=== PATIENT | female | born 1975 | race Caucasian/White ===

== ENCOUNTER 2018-06-01 05:28 | Day surgery (SDC) | payer OTHER ==
[2018-06-01] MEDS ORDERED: LR 1,000 ML IV ONE (05:59)
[2018-06-01] MEDS ORDERED: BUPIVACAINE 0.5% 30 ML SDV ONE (06:19)
[2018-06-01] MEDS ORDERED: LIDOCAINE 1% 300 MG/30 ML SDV ONE (06:19)
[2018-06-01] MEDS ORDERED: EPINEPHrine 30 MG/30 ML MDV (0.1 MG/0.1 ML) ONE (06:20)
[2018-06-01] MEDS ORDERED: ceFAZolin 2 GM/DEXTROSE 100 ML IV ONE (06:41)
--- NOTE | 2018-06-01 06:44 | PDHPUP ---
History & Physical Update H&P update statement: This history and physical update is based on an assessment of the patient which was completed after admission or registration (within 24 hours), but prior to the surgery/procedure. H&P update: H&P reviewed & patient examined, no change in patient's condition since H&P completed
--- NOTE | 2018-06-01 06:44 | SOAPPROG ---
SOAP Progress Note Assessment/Plan: HISTORY AND PHYSICAL Name SRIKANTH CHAN (42yo, F) ID# [id number] Appt. Date/Time 05/09/2018 01: 30PM 1975 Service Dept. MAIN OFFICE Provider JAKOB ARANA Insurance Med Primary: GENIE Insurance # : [id number] Policy/Group # : [id number] Prescription: DSTPS - Member is eligible. details Left shoulder MRI, continued aching in the shoulder Patient's Care Team Primary Care Provider: TOBY MARISCAL MD: [address], [place] [address], , Patient's Pharmacies [facility] #[id number] (ER[facility]): [address], [facility] [id number], Ph , Vitals None recorded. Allergies Allergies not reviewed (last reviewed 03/31/2018) ANIMAL DANDER BEEF CONTAINING PRODUCTS COCONUT CODEINE: Vomiting - constant disorientation CORN: - in large doses DOG DANDER GARLIC GLUTEN: - AND gluten based distilled grains HOUSE DUST LIDOCAINE MARCAINE MOLD NOVOCAIN: - painful injection sight for extended periods of time: large doses= lethal PENICILLINS: Hives (Moderate to severe) - extreme panic attacks PHENOL POTATO: - in large doses RAW VEGETABLE SHRIMP SOY SULFA (SULFONAMIDE ANTIBIOTICS): Vomiting TREE AND SHRUB POLLEN Generic medications, all fruit except berries. Most nuts Medications not reviewed (last reviewed 03/31/2018) albuterol sulfate HFA 90 mcg/actuation aerosol inhaler Inhale 2 puff(s) every 4 hours by inhalation route. Note: as needed 05/06/15 entered Jenezza Branden betamethasone acetate and sodium phos 6 mg/mL suspension for injection Take 1 mL by injection route. 12/07/17 administered Juan Novoa M.D. Claritin 05/06/15 entered Jenezza Otero DEPO-Medrol 40 mg/mL suspension for injection Take 1 mL by injection route. 11/28/17 administered Juan Novoa M.D. Ritalin 20 mg tablet 04/14/18 filled [employer] None recorded. Problems Reviewed Problems * Osteoarthrosis of the carpometacarpal joint of the thumb - Onset: 12/07/2017 * Pain in elbow - Onset: 11/23/2017, Left * Subacromial impingement - Onset: 12/07/2017, Left * Lateral epicondylitis - Onset: 11/23/2017, Left * Sprain of shoulder * Injury of shoulder region, Left - tubing injury * Pain of left shoulder joint - Onset: 11/23/2017 Family History Family History not reviewed (last reviewed 03/31/2018) Maternal Grandmother - Problem - Cancer Paternal Grandfather - Problem - Cancer - Problem - Bleeding Tendency Maternal Grandfather - Problem - Bleeding Tendency Mother - Arthritis Father - Arthritis Social History not reviewed (last reviewed 03/31/2018) Smoking Status: Current every day smoker Smoker (08/11 PPD) Occupation: Healer Employer: Self Chewing tobacco: none Alcohol intake: Occasional Caffeine intake: Moderate Illicit drugs: no Exercise level: Occasional Hand Dominance: Left Education: Post Graduate Live alone or with others?: with others (Notes: ) Surgical History Surgical History not reviewed (last reviewed 03/31/2018) * Orthopaedic Surgery - 2008 - hand surgery [facility] [place] * Other - 2004 - 2002. C- section * Other - 1995 - laparoscopy endomenthosis RESIDENT IN DIAGNOSTIC RADIOLOGY History (not configured) Obstetric History None recorded. Past Pregnancies None recorded. Past Medical History Past Medical History not reviewed (last reviewed 03/31/2018) Asthma: Y Cancer: Y - skin Migraines: Y Screening None recorded. HPI This is a very pleasant 42 year old LHD female with: - 02/19 -- left shoulder hyperabduction injury while rafting -04/01/15 -- left shoulder SAS injection by Shilo Dc PA-C with mild recurrence of symptoms -- currently s/s c/w PIEDAD vs partial RCT - insidious onset of right basilar thumb pain -- current s/s c/w early right thumb CMCJ arthritis - insidious onset of left lateral elbow pain - 11/24/17 -- left elbow MRI -- partial tear common extensor tendon at origin from the lateral epicondyle - 11/28/17 -- Left lateral epicondyle injection with great symptomatic relief -01/2018 -- increased left shoulder pain -- s/s c/w left shoulder PIEDAD vs partial RCT She presents today to discuss her treatment options for her left shoulder. She notes that she fell on her shoulder recently. She is able to do range of motion of her shoulder without difficulty. Of note, she has sleep apnea, hypersomnia and a circadian rhythm disorder. ROS ROS as noted in the HPI Physical Exam Patient is a 42-year-old female. Bilateral elbow examination Inspection/palpation: Right: Normal resting posture. Left: TTP overlying the lateral epicondyle Elbow ROM Elbow Extension-Flexion: -10 -150 / -10 -150 / 0-150 Forearm Supination: 0-80 / 0-80 / 0-80 Pronation: 0-80 / 0-80 / 0-80 Elbow strength Elbow Flexors: 5 / 5 / 5 Triceps: 5 / 5 / 5 Sensory MABC: + / + / + LABC: + / + / + Special tests Stability tests Lateral pivot shift: - / - / - Push-up: - / - / - Moving valgus stress: - / - / - Epicondylitis tests Resisted wrist extension: - / + / - Resisted wrist flexion: - / - / - Bilateral thumb examination Inspection/palpation: Right: TTP overlying the CMCJ Left: Soft, no tenderness to palpation. Thumb ROM CMC Radial abduction: 80 / 80 / 80 Palmar abduction: 80 / 80 / 80 MCP: 0-60 / 0-60 / 0-60 IP: 0-50 / 0-50 / 0-50 Thumb motors FPL: 5 / 5 / 5 EPL: 5 / 5 / 5 Thumb sensory RDN: + / + / + UDN: + / + / + Thumb tests MCP RCL: - / - / - UCL: - / - / - IP RCL: - / - / - UCL: - / - / - Other thumb tests Triggering: - / - / - Dupuytrens cords: - / - / - STT grind: - / - / - CMC grind: + / - / - Bilateral shoulder examination Inspection/palpation: Right: Normal resting posture. Left: TTP overlying the SAS and the bicipital groove Shoulder ROM (R / L / Normal) Forward flexion: 170 / 150 / 170 Abduction: 160 / 150 / 160 Extension: 40 / 40 / 40 Shoulder strength (R / L / Normal) Deltoid: 5/ 5 / 5 Biceps: 5/ 5 / 5 Shoulder sensory (R / L / Normal) Axillary: + / + / + Shoulder tests Stability tests OBriens: - / + / - Apprehension: - / - / - Relocation: - / - / - Jerk: - / - / - Rotator cuff tests Empty can: - / + / - Belly press: - / - / - Lift off : - / - / - Impingement tests Goran: - / + / - Neer: - / + / - Cross-arm adduction: - / + / - Biceps test Speeds: - / + / - Yergason supination: - / - / - Assessment / Plan This is a very pleasant 42 year old LHD female with: - 02/19 -- left shoulder hyperabduction injury while rafting -04/01/15 -- left shoulder SAS injection by Shilo Dc PA-C with mild recurrence of symptoms -- currently s/s c/w PIEDAD vs partial RCT - insidious onset of right basilar thumb pain -- current s/s c/w early right thumb CMCJ arthritis - insidious onset of left lateral elbow pain - 11/24/17 -- left elbow MRI -- partial tear common extensor tendon at origin from the lateral epicondyle - 11/28/17 -- Left lateral epicondyle injection with great symptomatic relief -01/2018 -- increased left shoulder pain -- s/s c/w left shoulder PIEDAD vs partial RCT -03/28/18 -- Left shoulder MRI -- distal supraspinatus tendinosis, degenerative arthropathy of AC joint For left elbow: - I have discussed with the patient the risks, benefits, alternatives and complications associated with both non-operative (specifically, NSAIDs, counter- force bracing, PT, injection) and operative (specifically, left lateral epicondylar debridement with repair of the common extensor origin) forms of treatment - The patient fully understands the risks, benefits, alternatives, and complications associated with these forms of treatment but is not sure how she would like to proceed at present - She will consider her options and follow-up in the future if/when she wishes to pursue additional treatment For left shoulder: - I have discussed with the patient the risks, benefits, alternatives and complications associated with non-operative (specifically, observation, injection, MRI) and operative (specifically, left shoulder arthroscopy with SAD , DCE, labral debridement, LHB tenotomy, and rotator cuff debridement and/or repair) forms of treatment - The patient fully understands the risks, benefits, alternatives, and complications associated with these forms of treatment and would like to proceed with surgery. - She has signed the informed consent form for surgery and surgery will be scheduled for the near future. For right thumb: - I have discussed with the patient the risks, benefits, alternatives and complications associated with non-operative (specifically, observation, NSAIDs, splinting) forms of treatment. - The patient fully understands the risks, benefits, alternatives, and complications associated with these forms of treatment and wishes to continue with observation at present -FU as above 1. Pain of left shoulder joint M25.512: Pain in left shoulder 2. Lateral epicondylitis - Left M77.12: Lateral epicondylitis, left elbow 3. Osteoarthrosis of the carpometacarpal joint of the thumb M18.11: Unilateral primary osteoarthritis of first carpometacarpal joint, right hand 4. Subacromial impingement - Left M75.42: Impingement syndrome of left shoulder 5. Tendinosis M67.814: Other specified disorders of tendon, left shoulder Return to Office None recorded. Encounter Sign-Off Encounter signed-off by JAKOB ARANA, 05/09/2018. 06/01/18 06:43 Objective: Vital Signs Temp Pulse Resp BP Pulse Ox 36.4 C 80 15 104/60 95 06/01/18 06:18 06/01/18 06:18 06/01/18 06:18 06/01/18 06:18 06/01/18 06:18 ICD10 Worksheet Patient Problems: Problems Problem Status Onset Abdominal pain Acute Constipation Acute Endometriosis Acute Pelvic abscess Acute Pelvic pain Acute Small bowel obstruction Acute
[2018-06-01] MEDS ORDERED: CLINDAMYCIN 600 MG/DEXTROSE/50 ML BAG IV ONE (07:04)
[2018-06-01] MEDS ORDERED: MIDAZOLAM 2 MG/2 ML VIAL ONE (07:06)
[2018-06-01] MEDS ORDERED: DEXAMETHASONE 4 MG/ML VIAL ONE (07:11)
[2018-06-01] MEDS ORDERED: fentaNYL 100 MCG/2 ML INJ ONE ×2 (07:11→09:07)
[2018-06-01] MEDS ORDERED: PROPOFOL 200 MG/20 ML VIAL ONE (07:11)
[2018-06-01] MEDS ORDERED: ONDANSETRON 4 MG/2 ML VIAL ONE (07:11)
[2018-06-01] MEDS ORDERED: KETOROLAC 30 MG/1 ML SDV ONE (07:11)
[2018-06-01] MEDS ORDERED: LIDOCAINE 2% 100 MG/5 ML SYR ONE (07:12)
[2018-06-01] MEDS ORDERED: LIDO/EPI 1% **for epidural** 30 ML SDV ONE (07:35)
[2018-06-01] MEDS ORDERED: CLINDAMYCIN 600 MG/DEXTROSE 50 ML IV SCH ×2 (08:30→14:00)
[2018-06-01] MEDS ORDERED: ALBUTEROL 3 ML DEYVIAL IH PRN ×2 (08:35→09:09)
[2018-06-01] MEDS ORDERED: fentaNYL 100 MCG/2 ML INJ IVP PRN ×2 (08:35→09:09)
[2018-06-01] MEDS ORDERED: ONDANSETRON 4 MG/2 ML VIAL IVP PRN ×2 (08:35→09:09)
[2018-06-01] MEDS ORDERED: NALOXONE HCL 0.4 MG/ML INJ IVP PRN ×2 (08:35→09:09)
[2018-06-01] MEDS ORDERED: MIDAZOLAM 2 MG/2 ML VIAL IVP ONE (08:45)
[2018-06-01] MEDS ORDERED: MEPERIDINE 25 MG/0.5 ML AMP IVP PRN (09:09)
--- NOTE | 2018-06-01 09:09 | PDANEPAE ---
ANE Past Medical History - Cardiovascular History Hx Hypertension: No Hx Arrhythmias: No Hx Chest Pain: No Hx Coronary Artery / Peripheral Vascular Disease: No Hx CHF / Valvular Disease: No Hx Palpitations: No - Pulmonary History Hx COPD: No Hx Asthma/Reactive Airway Disease: Yes Hx Recent Upper Respiratory Infection: No Hx Oxygen in Use at Home: No Hx Sleep Apnea: Yes Sleep Apnea Screening Result - Last Documented: Positive Pulmonary History Comment: [place] DX 03/2018 WAITING TO GET MOUTH GUARD STARTING POINT. TO THEN REPEAT TEST. COLD AIR,PANIC,EXERCISE INDUCED - Neurologic History Hx Cerebrovascular Accident: No Hx Seizures: No Hx Dementia: No - Endocrine History Hx Diabetes: No - Renal History Hx Renal Disorders: No - Liver History Hx Hepatic Disorders: No - Neurological & Psychiatric Hx Hx Neurological and Psychiatric Disorders: Yes Neurological / Psychiatric History Comment: ADD. INTERMITTENT MIGRAINES. SOME OCULAR IF ON COMPUTER LONG TIME - Cancer History Hx Cancer: Yes Cancer History Comment: SKIN - Congenital Disorder History Hx Congenital Disorders: No - GI History Hx Gastrointestinal Disorders: Yes Gastrointestinal History Comment: HISTADELIA. GLUTEN AND SOY INTOLERANCE. HYPOGLYCEMIA. CELIAC - Other Health History Other Health History: LT SHLDR. INJURED ROTATOR CUFF. LIMITED RANGE OF MOTION - Chronic Pain History Chronic Pain: Yes (LT SHLDR,INTESTINES,LL QUADRANT) - Surgical History Prior Surgeries: DX LAP/ADHESION WITH VAGINAL CUFF REPAIR/ POST UTI/BACTERIAL INFECTION 07/2015. X 2. LAPARASCOPY. RT HAND ORIF WITH POST HARDWARE REMVL ANE Review of Systems Review of Systems: - Exercise capacity METS (RN): 4 METS ANE Patient History - Allergies Allergies/Adverse Reactions: amoxicillin Allergy (Verified 06/03/15 09:55) apple Allergy (Verified 07/08/15 18:13) bupivacaine HCl [From Marcaine] Allergy (Verified 06/03/15 09:56) codeine Allergy (Verified 06/03/15 09:54) gluten Allergy (Verified 06/03/15 09:57) latex Allergy (Verified 06/03/15 10:07) lidocaine Allergy (Verified 06/03/15 09:56) Penicillins Allergy (Verified 06/01/18 06:47) phenol Allergy (Verified 06/03/15 09:58) procaine HCl [From Novocain] Allergy (Verified 06/03/15 09:55) soy Allergy (Verified 06/03/15 09:57) Sulfa (Sulfonamide Antibiotics) Allergy (Verified 06/03/15 09:54) GENERIC FILLERS IN PAIN MEDS Allergy (Uncoded 06/03/15 09:59) GENERIC PAIN KILLERS Allergy (Uncoded 06/03/15 10:07) SOY Allergy (Uncoded 06/03/15 09:58) - Home Medications Home Medications: Albuterol [Proventil Inhaler HFA (*)] 1 - 2 puffs IH DAILY PRN 05/27/15 [Last Taken 05/30/18] Loratadine [Claritin 10 mg] 10 mg PO PRN 05/27/15 [Last Taken 05/27/18] Methylphenidate HCl [Ritalin 20mg (*)] 20 mg PO 07,0930,12,0230,06 PRN 05/27/15 [Last Taken 05/31/18] - Smoking Hx Smoking Status: Heavy smoker ANE Labs/Vital Signs - Vital Signs Blood Pressure: 104/60 Heart Rate: 80 Respiratory Rate: 15 O2 Sat (%): 95 Height: 165.1 cm Weight: 50.802 kg ANE Physical Exam - Airway Mallampati Score: Class 2 Mouth exam: normal dental/mouth exam - Pulmonary Pulmonary: no respiratory distress - Cardiovascular Cardiovascular: regular rate and rhythym - ASA Status ASA Status: III ANE Anesthesia Plan Anesthesia Plan: GA w LMA
--- NOTE | 2018-06-01 09:10 | POSTOPPROG ---
Post Op Note Date of Operation: 06/01/18 Surgeon: Juan Novoa Biology Tutor: Laura Roberson PA-C Anesthesiologist: Dr. St Anesthesia: GET(General Endotracheal) Pre-op Diagnosis: left shoulder impingement, AC joint arthritis, rotator cuff tear Post-op Diagnosis: same Indication: pain Procedure: left shoulder arthroscopic ASD, DCE, debridement Inf/Abcess present in the surg proc area at time of surgery?: No EBL: Minimal
[2018-06-01] MEDS ORDERED: traMADol 50 MG TAB PO ONE (10:45)
[2018-06-01 11:06] VITALS: BP 94/59
--- NOTE | 2018-06-02 06:17 | GOP ---
PATIENT: SRIKANTH CHAN DATE OF SERVICE: 06/01/18 PATIENT DATE OF : 1975 SURGEON: Juan Novoa M.D. BOARD CERTIFIED ARTS THERAPIST: Laura Roberson PA-C Mrs. Musa assistance was medically necessary for patient positioning and the retraction of vital structures. ANESTHESIA: General / local anesthesia by surgeon PRE-OPERATIVE DIAGNOSES: Left shoulder subacromial impingement (ICD-10 code M75.50 bursitis of shoulder) Left shoulder acromioclavicular joint arthritis (ICD-10 code M13.119 acromioclavicular joint arthritis) Left shoulder SLAP tear (ICD-10 code S43.439S Superior glenoid labrum lesion of shoulder) Left shoulder biceps tenosynovitis (ICD-10 code M75.20 bicipital tendinitis of shoulder) POST-OPERATIVE DIAGNOSES: Left shoulder subacromial impingement (ICD-10 code M75.50 bursitis of shoulder) Left shoulder acromioclavicular joint arthritis (ICD-10 code M13.119 acromioclavicular joint arthritis) Left shoulder SLAP tear (ICD-10 code S43.439S Superior glenoid labrum lesion of shoulder) Left shoulder biceps tenosynovitis (ICD-10 code M75.20 bicipital tendinitis of shoulder) OPERATIVE PROCEDURES: CPT code 74691 Left shoulder arthroscopic subacromial decompression CPT code 06277 -- Left shoulder arthroscopic debridement, extensive CPT code 84861 Left shoulder arthroscopic distal clavicle excision CPT code 67815 Left shoulder long head of biceps tenotomy EBL: 2cc COMPLICATIONS: None IMPLANTS: None BRIEF CLINICAL NOTE: This is a very pleasant 42 year old female with a significant history for left shoulder subacromial impingement, acromioclavicular joint arthritis, a SLAP tear, and long head of biceps tendinitis and partial tearing. As such, I have discussed the risks, benefits, alternatives, and complications associated with both non-operative (specifically , observation, activity modifications, NSAIDs, PT, injection) and operative ( specifically, left shoulder arthroscopy with subacromial decompression, distal clavicle excision, labral debridement, and possible long head of biceps tenotomy ) forms of treatment. The patient fully understands the risks, benefits, alternatives, and complications associated with both forms of treatment and wishes to proceed with operative intervention as outlined above. The patient has signed the informed consent form for surgery. OPERATIVE NOTE: On the day of surgery, all of the patients questions were answered. The patient was then transferred from the pre-operative area into the operating room and a formal, Time-Out procedure was performed. The patient was identified by name, medical record number, social security number, and date of . In addition, the patients left upper extremity was identified as the correct portion of the patients body for surgery with the patients left shoulder being identified as the correct portion of that extremity for surgery. The anesthesia team administered pre-operative antibiotics for prophylaxis. The patient was transferred to the operating room table and placed in the beach chair position while padding all bony prominences. The extremity was then prepped and draped in the normal sterile fashion. A sterile marking pen was then utilized to cristobal out standard posterior, lateral , and anterior arthroscopic portal incisions. An 18-gauge spinal needle was utilized to localize the glenohumeral joint and the joint was insufflated with 60cc of a 50:50 mixture of 1% lidocaine with 1:200,000 components of epinephrine and normal saline. A number 11-blade was utilized to make the posterior portal incision. The blunt obturator and arthroscopic cannula were then advanced through the posterior portal incision into the glenohumeral joint. The arthroscope was then inserted and the shoulder was brought into external rotation. An 18-gauge spinal needle was utilized to create the anterior portal with outside-in technique. A medium-sized Athrex corkscrew cannula was then inserted through the anterior portal incision. A diagnostic arthroscopy was performed in the glenohumeral space. The following structures were identified and examined with the following findings: Glenohumeral diagnostic arthroscopy Glenoid: minimal degenerative change Humeral head: intact Glenoid labrum Anterior labrum: tear from 10 oclock to 1 oclock Superior labrum: tear from 10 oclock to 1 oclock Posterior labrum: tear from 10 oclock to 1 oclock Inferior labrum: intact Biceps tendon: partial thickness tearing at insertion point Glenohumeral ligaments: SGHL: intact MGHL: intact AIGHL: intact PIGHL: intact Undersurface of rotator cuff: Subscapularis: intact Supraspinatus: intact Infraspinatus: intact The 4.0mm aggressive cutter was then inserted through the anterior portal and an extensive debridement was performed within the glenohumeral joint including the labrum and the long head of biceps tendon. The cautery wand was inserted through the anterior portal and the long head of the biceps tendon was released off of the supraglenoid tubercle (long head of biceps tenotomy). The arthroscope was then withdrawn from the glenohumeral joint and posterior cannula was re-directed into the subacromial space. The arthroscope was then re -inserted into the posterior cannula. An 18-gauge spinal needle was used to create a straight lateral portal with outside-in technique. A large Arthrex corkscrew cannula was then inserted through the lateral portal incision. The 4.0mm aggressive cutter and the cautery wand were utilized to excise the subacromial-subdeltoid bursa. At this point, a diagnostic arthroscopy was performed in the subacromial space. The following structures were identified and examined with the following findings: Subacromial space diagnostic arthroscopy Subacromial / subdeltoid bursa: hypertrophic and inflamed Acromion: undersurface spurring Coracoacromial ligament: intact Acromioclavicular joint: undersurface spurring and arthritis Bursal surface of rotator cuff muscles: Supraspinatus: intact Infraspinatus: intact The 4.0mm barrel garrison was then utilized to perform both an acromioplasty as well as an arthroscopic distal clavicle excision. Meticulous hemostasis was obtained throughout the subacromial space with the cautery wand. Final arthroscopic pictures were taken, saved, and printed. The arthroscope and all instruments were then removed from the joint. All wounds were copiously irrigated with sterile normal saline. The subcutaneous plane was re-approximated with 3-0 vicryl sutures and the skin was re-approximated with a running 4-0 moncryl. A mixture of 1% lidocaine and 0.5% Marcaine was then utilized to provide local anesthesia at the operative sites. The skin was cleaned with sterile normal saline and dried. Dermabond was applied to all of the incisions followed by Xeroform gauze dressings, a dry sterile dressing, and an occlusive tegaderm dressing. The arm was then placed into a sling and swathe. The patient was reversed from anesthesia and transferred from the operating room table onto the post-operative javier and transferred from the operating room to the post-anesthesia care unit in stable condition. POST-OPERATIVE PLAN: The patient will remain in the current dressing and sling for the next week. The patient will follow-up in one week for a wound check and initiation of gentle forearm, elbow, and shoulder ROM exercises. /[id number]/MODL MTDD
== END 2018-06-01 12:05 | disposition home or self-care (01) ==
LOC: FSGY 05:28
PROVIDERS: ATTEND Orthopaedic Surgery Hand Surgery
DX: M25.812 Other specified joint disorders, left shoulder (principal); M19.012 Primary osteoarthritis, left shoulder; M75.52 Bursitis of left shoulder; M75.22 Bicipital tendinitis, left shoulder; S43.432S Superior glenoid labrum lesion of left shoulder, sequela; X58.XXXS Exposure to other specified factors, sequela; G47.33 Obstructive sleep apnea (adult) (pediatric)
CPT/HCPCS: J0171; J1100; J1885; J2001; J2250; J2405; J2704; J3010

== ENCOUNTER 2018-07-04 05:40 | Day surgery (SDC) | payer OTHER ==
--- NOTE | 2018-06-01 07:01 | PDANEPAE ---
ANE Past Medical History - Cardiovascular History Hx Hypertension: No Hx Arrhythmias: No Hx Chest Pain: No Hx Coronary Artery / Peripheral Vascular Disease: No Hx CHF / Valvular Disease: No Hx Palpitations: No - Pulmonary History Hx COPD: No Hx Asthma/Reactive Airway Disease: Yes Hx Recent Upper Respiratory Infection: No Hx Oxygen in Use at Home: No Hx Sleep Apnea: No Pulmonary History Comment: COLD AIR,PANIC,EXERCISE INDUCED - Neurologic History Hx Cerebrovascular Accident: No Hx Seizures: No Hx Dementia: No - Endocrine History Hx Diabetes: No - Renal History Hx Renal Disorders: No - Liver History Hx Hepatic Disorders: No - Neurological & Psychiatric Hx Hx Neurological and Psychiatric Disorders: Yes Neurological / Psychiatric History Comment: ADD. INTERMITTENT MIGRAINES. SOME OCULAR IF ON COMPUTER LONG TIME - Cancer History Hx Cancer: Yes Cancer History Comment: SKIN - Congenital Disorder History Hx Congenital Disorders: No - GI History Hx Gastrointestinal Disorders: Yes Gastrointestinal History Comment: HISTADELIA. GLUTEN AND SOY INTOLERANCE. PYLORIA. CELIAC - Other Health History Other Health History: LT SHLDR. INJURED ROTATOR CUFF. LIMITED RANGE OF MOTION - Chronic Pain History Chronic Pain: Yes (LT SHLDR,INTESTINES,LL QUADRANT) - Surgical History Prior Surgeries: X 2. LAPARASCOPY. RT HAND ORIF WITH POST HARDWARE REMVL ANE Review of Systems Review of Systems: ANE Patient History - Allergies Allergies/Adverse Reactions: amoxicillin Allergy (Verified 06/03/15 09:55) apple Allergy (Verified 07/08/15 18:13) bupivacaine HCl [From Marcaine] Allergy (Verified 06/03/15 09:56) codeine Allergy (Verified 06/03/15 09:54) gluten Allergy (Verified 06/03/15 09:57) latex Allergy (Verified 06/03/15 10:07) lidocaine Allergy (Verified 06/03/15 09:56) Penicillins Allergy (Verified 06/01/18 06:47) phenol Allergy (Verified 06/03/15 09:58) procaine HCl [From Novocain] Allergy (Verified 06/03/15 09:55) soy Allergy (Verified 06/03/15 09:57) Sulfa (Sulfonamide Antibiotics) Allergy (Verified 06/03/15 09:54) GENERIC FILLERS IN PAIN MEDS Allergy (Uncoded 06/03/15 09:59) GENERIC PAIN KILLERS Allergy (Uncoded 06/03/15 10:07) SOY Allergy (Uncoded 06/03/15 09:58) - Home Medications Home Medications: Albuterol [Proventil Inhaler HFA (*)] 1 - 2 puffs IH DAILY PRN 05/27/15 [Last Taken 05/30/18] Loratadine [Claritin 10 mg] 10 mg PO PRN 05/27/15 [Last Taken 05/27/18] Methylphenidate HCl [Ritalin 20mg (*)] 20 mg PO 07,0930,12,0230,06 PRN 05/27/15 [Last Taken 05/31/18] - Smoking Hx Smoking Status: Light smoker ANE Physical Exam - Airway Neck exam: FROM Mallampati Score: Class 2 Mouth exam: normal dental/mouth exam - Cardiovascular Cardiovascular: regular rate and rhythym - ASA Status ASA Status: III ANE Anesthesia Plan Anesthesia Plan: GA w LMA
--- NOTE | 2018-06-01 09:02 | POSTANESTH ---
Post Anesthetic Evaluation Cardiovascular Status: Similar to Pre-Op Cond Respiratory Status: Similar to Pre-op Cond. Level of Consciousness/Mental Status: Mildly Sleepy, Arousable Pain Control: Adequate, Prn Tx Ordered Nausea/Vomiting Control: Adequate, Prn Tx Ordered Complications Possibly Related to Anesthesia: None Noted
[~2018-07-04 05:40] MED LIST: ALBUTEROL 3 ML DEYVIAL IH PRN; MEPERIDINE 25 MG/0.5 ML AMP IVP ONE; MIDAZOLAM 2 MG/2 ML VIAL IVP ONE; NALOXONE HCL 0.4 MG/ML INJ IVP PRN; ONDANSETRON 4 MG/2 ML VIAL IVP PRN; ONDANSETRON 4 MG/2 ML VIAL ONE; fentaNYL 100 MCG/2 ML INJ IVP PRN; traMADol 50 MG TAB ONE
[2018-07-04] MEDS ORDERED: LIDOCAINE 1% 2 ML INJ ONE (05:43)
[2018-07-04] MEDS ORDERED: LR 1,000 ML IV ONE (05:49)
[2018-07-04] MEDS ORDERED: CLINDAMYCIN 600 MG/DEXTROSE 50 ML IV ONE (06:49)
--- NOTE | 2018-07-04 06:53 | SOAPPROG ---
SOAP Progress Note Assessment/Plan: HISTORY AND PHYSICAL Name SRIKANTH CHAN (43yo, F) ID# [id number] 1975 Service Dept. MAIN OFFICE Provider JAKOB ARANA Insurance Med Primary: GENIE Insurance # : [id number] Policy/Group # : [id number] Prescription: DSTPS - Member is eligible. details Left shoulder MRI, continued aching in the shoulder Patient's Care Team Primary Care Provider: TOBY MARISCAL MD: [address], [place] [address], , Patient's Pharmacies [facility] #[id number] (ER[facility]): [address], [facility] [address], Ph [phone], Vitals None recorded. Allergies Allergies not reviewed (last reviewed 03/31/2018) ANIMAL DANDER BEEF CONTAINING PRODUCTS COCONUT CODEINE: Vomiting - constant disorientation CORN: - in large doses DOG DANDER GARLIC GLUTEN: - AND gluten based distilled grains HOUSE DUST LIDOCAINE MARCAINE MOLD NOVOCAIN: - painful injection sight for extended periods of time: large doses= lethal PENICILLINS: Hives (Moderate to severe) - extreme panic attacks PHENOL POTATO: - in large doses RAW VEGETABLE SHRIMP SOY SULFA (SULFONAMIDE ANTIBIOTICS): Vomiting TREE AND SHRUB POLLEN Generic medications, all fruit except berries. Most nuts Medications not reviewed (last reviewed 03/31/2018) albuterol sulfate HFA 90 mcg/actuation aerosol inhaler Inhale 2 puff(s) every 4 hours by inhalation route. Note: as needed 05/06/15 entered Jenedwardza Branden betamethasone acetate and sodium phos 6 mg/mL suspension for injection Take 1 mL by injection route. 12/07/17 administered Juan Novoa M.D. Claritin 05/06/15 entered Jenezza Otero DEPO-Medrol 40 mg/mL suspension for injection Take 1 mL by injection route. 11/28/17 administered Juan Novoa M.D. HYDROmorphone 2 mg tablet 06/01/18 filled Agolo ondansetron 4 mg disintegrating tablet 06/01/18 filled Agolo Ritalin 20 mg tablet 06/12/18 filled Agolo traMADol 50 mg tablet 06/01/18 filled Agolo None recorded. Problems Reviewed Problems * Osteoarthrosis of the carpometacarpal joint of the thumb - Onset: 12/07/2017 * Pain in elbow - Onset: 11/23/2017, Left * Subacromial impingement - Onset: 12/07/2017, Left * Lateral epicondylitis - Onset: 11/23/2017, Left * Sprain of shoulder * Injury of shoulder region, Left - tubing injury * Pain of left shoulder joint - Onset: 11/23/2017 Family History Family History not reviewed (last reviewed 03/31/2018) Maternal Grandmother - Problem - Cancer Paternal Grandfather - Problem - Cancer - Problem - Bleeding Tendency Maternal Grandfather - Problem - Bleeding Tendency Mother - Arthritis Father - Arthritis Social History not reviewed (last reviewed 03/31/2018) Smoking Status: Current every day smoker Smoker (08/11 PPD) Occupation: Healer Employer: Self Chewing tobacco: none Alcohol intake: Occasional Caffeine intake: Moderate Illicit drugs: no Exercise level: Occasional Hand Dominance: Left Education: Post Graduate Live alone or with others?: with others (Notes: ) Surgical History Surgical History not reviewed (last reviewed 03/31/2018) * Open lateral epicondylar debridement and repair - 06/01/2018 * Orthopaedic Surgery - 2008 - hand surgery [facility]usias * Other - 2004 - 2002. C- section * Other - 1995 - laparoscopy endomenthosis PURCHASING ANALYST History (not configured) Obstetric History None recorded. Past Pregnancies None recorded. Past Medical History Past Medical History not reviewed (last reviewed 03/31/2018) Asthma: Y Cancer: Y - skin Migraines: Y Screening None recorded. HPI This is a very pleasant 42 year old LHD female who is 2 weeks s/p left shoulder arthroscopic ASD, DCE, LHB tenotomy, and debridement on 06/01/18: - 02/19 -- left shoulder hyperabduction injury while rafting -04/01/15 -- left shoulder SAS injection by Shilo Dc PA-C with mild recurrence of symptoms -- currently s/s c/w PIEDAD vs partial RCT - insidious onset of right basilar thumb pain -- current s/s c/w early right thumb CMCJ arthritis - insidious onset of left lateral elbow pain - 11/24/17 -- left elbow MRI -- partial tear common extensor tendon at origin from the lateral epicondyle - 11/28/17 -- Left lateral epicondyle injection with great symptomatic relief -01/2018 -- increased left shoulder pain -- s/s c/w left shoulder PIEDAD vs partial RCT -03/28/18 -- Left shoulder MRI -- distal supraspinatus tendinosis, degenerative arthropathy of AC joint -06/01/18 -- Left shoulder arthroscopic ASD, DCE, LHB tenotomy, and debridement She presents for a routine follow up and reports that her left shouldeer is doing well. She continues to have left elbow pain and would like to proceed with surgery. Of note, she has sleep apnea, hypersomnia and a circadian rhythm disorder. ROS ROS as noted in the HPI Physical Exam Patient is a 43-year-old female. Bilateral elbow examination Inspection/palpation: Right: Normal resting posture. Left: TTP overlying the lateral epicondyle Elbow ROM Elbow Extension-Flexion: -10 -150 / -10 -150 / 0-150 Forearm Supination: 0-80 / 0-80 / 0-80 Pronation: 0-80 / 0-80 / 0-80 Elbow strength Elbow Flexors: 5 / 5 / 5 Triceps: 5 / 5 / 5 Sensory MABC: + / + / + LABC: + / + / + Special tests Stability tests Lateral pivot shift: - / - / - Push-up: - / - / - Moving valgus stress: - / - / - Epicondylitis tests Resisted wrist extension: - / + / - Resisted wrist flexion: - / - / - Bilateral thumb examination Inspection/palpation: Right: TTP overlying the CMCJ Left: Soft, no tenderness to palpation. Thumb ROM CMC Radial abduction: 80 / 80 / 80 Palmar abduction: 80 / 80 / 80 MCP: 0-60 / 0-60 / 0-60 IP: 0-50 / 0-50 / 0-50 Thumb motors FPL: 5 / 5 / 5 EPL: 5 / 5 / 5 Thumb sensory RDN: + / + / + UDN: + / + / + Thumb tests MCP RCL: - / - / - UCL: - / - / - IP RCL: - / - / - UCL: - / - / - Other thumb tests Triggering: - / - / - Dupuytrens cords: - / - / - STT grind: - / - / - CMC grind: + / - / - Bilateral shoulder examination Inspection/palpation: Right: Normal resting posture. Left: Well healing incisions. Shoulder ROM (R / L / Normal) Forward flexion: 170 / 170 / 170 Abduction: 160 / 160 / 160 Extension: 40 / 40 / 40 Shoulder strength (R / L / Normal) Deltoid: 5/ 4 / 5 Biceps: 5/ 4 / 5 Shoulder sensory (R / L / Normal) Axillary: + / + / + Assessment / Plan This is a very pleasant 43 year old LHD female who is 2 weeks s/p left shoulder arthroscopic ASD, DCE, LHB tenotomy, and debridement on 06/01/18: - 02/19 -- left shoulder hyperabduction injury while rafting -04/01/15 -- left shoulder SAS injection by Shilo Dc PA-C with mild recurrence of symptoms -- currently s/s c/w PIEDAD vs partial RCT - insidious onset of right basilar thumb pain -- current s/s c/w early right thumb CMCJ arthritis - insidious onset of left lateral elbow pain - 11/24/17 -- left elbow MRI -- partial tear common extensor tendon at origin from the lateral epicondyle - 11/28/17 -- Left lateral epicondyle injection with great symptomatic relief -01/2018 -- increased left shoulder pain -- s/s c/w left shoulder PIEDAD vs partial RCT -03/28/18 -- Left shoulder MRI -- distal supraspinatus tendinosis, degenerative arthropathy of AC joint -06/01/18 -- Left shoulder arthroscopic ASD, DCE, LHB tenotomy, and debridement For the left shoulder: -Sutures were removed and steris applied. May shower. No submerging for 1 week. -Continue HEP and PT for shoulder, elbow, and forearm ROM until MMI -WBAT LUE -FU in 4 weeks. For left elbow: - I have discussed with the patient the risks, benefits, alternatives and complications associated with both non-operative (specifically, NSAIDs, counter- force bracing, PT, injection) and operative (specifically, left lateral epicondylar debridement with repair of the common extensor origin) forms of treatment - The patient fully understands the risks, benefits, alternatives, and complications associated with these forms of treatment but is not sure how she would like to proceed with surgery. - She has signed the informed consent form for surgery and surgery will be scheduled for the near future. For right thumb: - I have discussed with the patient the risks, benefits, alternatives and complications associated with non-operative (specifically, observation, NSAIDs, splinting) forms of treatment. - The patient fully understands the risks, benefits, alternatives, and complications associated with these forms of treatment and wishes to continue with observation at present -FU as above 1. Pain of left shoulder joint M25.512: Pain in left shoulder 2. Lateral epicondylitis - Left M77.12: Lateral epicondylitis, left elbow 3. Osteoarthrosis of the carpometacarpal joint of the thumb M18.11: Unilateral primary osteoarthritis of first carpometacarpal joint, right hand 4. Subacromial impingement - Left M75.42: Impingement syndrome of left shoulder 5. Tendinosis M67.814: Other specified disorders of tendon, left shoulder Return to Office * LAURA Gilbert for OT/PT Follow-Up at PT on 06/19/2018 at 02:45 PM * Manisha Clemens for OT/PT Follow-Up at PT on 06/23/2018 at 12:45 PM Encounter Sign-Off Encounter signed-off by JAKOB ARANA, 07/04/18 06:51 Objective: Vital Signs Temp Pulse Resp BP Pulse Ox 36.6 C 87 18 119/75 97 07/04/18 06:05 07/04/18 06:05 07/04/18 06:05 07/04/18 06:05 07/04/18 06:05 ICD10 Worksheet Patient Problems: Problems Problem Status Onset Abdominal pain Acute Constipation Acute Endometriosis Acute Pelvic abscess Acute Pelvic pain Acute Small bowel obstruction Acute
[2018-07-04] MEDS ORDERED: MIDAZOLAM 2 MG/2 ML VIAL IVP ONE (06:58)
[2018-07-04] MEDS ORDERED: SCOPOLAMINE HYDROBROMIDE 1 MG/3 DAYS PATCH TD ONE ×2 (06:58→07:30)
--- NOTE | 2018-07-04 07:00 | PDANEPAE ---
ANE Past Medical History - Cardiovascular History Hx Hypertension: No Hx Arrhythmias: No Hx Chest Pain: No Hx Coronary Artery / Peripheral Vascular Disease: No Hx CHF / Valvular Disease: No Hx Palpitations: No - Pulmonary History Hx COPD: No Hx Asthma/Reactive Airway Disease: Yes Hx Recent Upper Respiratory Infection: No Hx Oxygen in Use at Home: No Hx Sleep Apnea: Yes Sleep Apnea Screening Result - Last Documented: Positive Pulmonary History Comment: [place] DX 03/2018 WAITING TO GET MOUTH GUARD STARTING POINT. TO THEN REPEAT TEST. COLD AIR,PANIC,EXERCISE INDUCED - Neurologic History Hx Cerebrovascular Accident: No Hx Seizures: No Hx Dementia: No - Endocrine History Hx Diabetes: No - Renal History Hx Renal Disorders: No Renal History Comment: RECURRENT UTIs - Liver History Hx Hepatic Disorders: No - Neurological & Psychiatric Hx Hx Neurological and Psychiatric Disorders: Yes Neurological / Psychiatric History Comment: ADD. INTERMITTENT MIGRAINES. SOME OCULAR IF ON COMPUTER LONG TIME - Cancer History Hx Cancer: Yes Cancer History Comment: SKIN - Congenital Disorder History Hx Congenital Disorders: No - GI History Hx Gastrointestinal Disorders: Yes Gastrointestinal History Comment: HISTADELIA. GLUTEN AND SOY INTOLERANCE. HYPOGLYCEMIA. CELIAC - Other Health History Other Health History: LT SHLDR. INJURED ROTATOR CUFF. LIMITED RANGE OF MOTION - Chronic Pain History Chronic Pain: Yes (LT SHLDR,INTESTINES,LL QUADRANT) - Surgical History Prior Surgeries: DX LAP/ADHESION WITH VAGINAL CUFF REPAIR/ POST UTI/BACTERIAL INFECTION 07/2015. X 2. LAPARASCOPY. RT HAND ORIF WITH POST HARDWARE REMVL ANE Review of Systems Review of Systems: - Exercise capacity METS (RN): 5 METS ANE Patient History - Allergies Allergies/Adverse Reactions: acetaminophen [From Vicodin] Allergy (Verified 06/12/18 16:11) VIOLENT VOMITING amoxicillin Allergy (Verified 06/03/15 09:55) apple Allergy (Verified 07/08/15 18:13) bupivacaine HCl [From Marcaine] Allergy (Verified 06/12/18 16:11) STINGING & EXCRUCIATING PAIN codeine Allergy (Verified 06/12/18 16:11) VIOLENT VOMITING gluten Allergy (Verified 06/03/15 09:57) hydrocodone [From Vicodin] Allergy (Verified 06/12/18 16:11) VIOLENT VOMITING hydromorphone [From Dilaudid] Allergy (Verified 06/12/18 16:11) NAUSEA & DIZZINESS latex Allergy (Verified 06/12/18 16:11) BURNING,ITCHING, PAIN & HIVES lidocaine Allergy (Verified 06/12/18 16:11) STINGING & PAIN AT SITE Penicillins Allergy (Verified 06/01/18 06:47) phenol Allergy (Verified 06/03/15 09:58) procaine HCl [From Novocain] Allergy (Verified 06/12/18 16:11) STINGING & PAIN AT SITE soy Allergy (Verified 06/03/15 09:57) Sulfa (Sulfonamide Antibiotics) Allergy (Verified 06/03/15 09:54) tramadol Allergy (Verified 06/12/18 16:11) NAUSEA & DIZZINESS GENERIC FILLERS IN PAIN MEDS Allergy (Uncoded 06/03/15 09:59) GENERIC PAIN KILLERS Allergy (Uncoded 06/03/15 10:07) SOY Allergy (Uncoded 06/03/15 09:58) - Home Medications Home Medications: Albuterol [Proventil Inhaler HFA (*)] 1 - 2 puffs IH DAILY PRN 05/27/15 [Last Taken 06/27/18] Loratadine [Claritin 10 mg] 10 mg PO PRN 05/27/15 [Last Taken 05/27/18] Methylphenidate HCl [Ritalin 20mg (*)] 20 mg PO 07,0930,12,0230,06 PRN 05/27/15 [Last Taken 07/03/18] Keanu 5-20 mg Tablet 95 mg 07/04/18 [Last Taken 07/03/18] Nitrofurantoin 100 mg 07/04/18 [Last Taken 07/03/18] - NPO status NPO Since - Liquids (Date): 07/04/18 NPO Since - Liquids (Time): 03:30 NPO Since - Solids (Date): 07/03/18 NPO Since - Solids (Time): 21:00 - Smoking Hx Smoking Status: Heavy smoker - Family Anes Hx Family Hx Anesthesia Complications: MOTHER SEVERE NAUSEA & VOMITING ANE Labs/Vital Signs - Vital Signs Blood Pressure: 119/75 Heart Rate: 87 Respiratory Rate: 18 O2 Sat (%): 97 Height: 165.1 cm Weight: 52.163 kg ANE Physical Exam - Airway Neck exam: FROM Mallampati Score: Class 2 - Pulmonary Pulmonary: no respiratory distress - Cardiovascular Cardiovascular: regular rate and rhythym - ASA Status ASA Status: II ANE Anesthesia Plan Anesthesia Plan: GA w LMA Total IV Anesthesia: Yes
[2018-07-04] MEDS ORDERED: BUPIVACAINE 0.5% 30 ML SDV ONE (07:02)
[2018-07-04] MEDS ORDERED: POLYMYXIN B SULFATE 500,000 UNIT/10 ML SYR IRR ONE (07:02)
[2018-07-04] MEDS ORDERED: LIDOCAINE 1% 300 MG/30 ML SDV ONE (07:02)
[2018-07-04] MEDS ORDERED: BACITRACIN 50,000 UNITS/10 ML SYR IRR ONE (07:02)
[2018-07-04] MEDS ORDERED: DEXAMETHASONE 4 MG/ML VIAL ONE ×2 (07:08)
[2018-07-04] MEDS ORDERED: PROPOFOL/EMULSION 500 MG/50 ML BOTTLE IV ONE ×2 (07:08→07:47)
[2018-07-04] MEDS ORDERED: fentaNYL 100 MCG/2 ML INJ ONE ×2 (07:08→08:44)
[2018-07-04] MEDS ORDERED: KETOROLAC 30 MG/1 ML SDV ONE (07:09)
[2018-07-04] MEDS ORDERED: METOCLOPRAMIDE 10 MG/2 ML VIAL ONE (07:09)
[2018-07-04] MEDS ORDERED: RANITIDINE 50 MG/2 ML VIAL ONE (07:09)
[2018-07-04] MEDS ORDERED: ONDANSETRON 4 MG/2 ML VIAL ONE (07:09)
[2018-07-04] MEDS ORDERED: VANCOMYCIN PHARMACY TO DOSE MISC SCH (07:15)
[2018-07-04] MEDS ORDERED: VANCOMYCIN 750 MG in D5W 150 ML IV ONE (07:30)
[2018-07-04] MEDS ORDERED: ALBUTEROL 3 ML DEYVIAL IH PRN (08:13)
[2018-07-04] MEDS ORDERED: ONDANSETRON 4 MG/2 ML VIAL IVP PRN (08:13)
[2018-07-04] MEDS ORDERED: NALOXONE HCL 0.4 MG/ML INJ IVP PRN (08:13)
[2018-07-04] MEDS ORDERED: DIAZEPAM 5 MG/ML 1 ML SYR IVP PRN (08:13)
[2018-07-04] MEDS: fentaNYL 100 MCG/2 ML INJ IVP PRN ×2 (08:45→08:54)
[2018-07-04 10:19] VITALS: BP 104/73
[2018-07-04] MEDS ORDERED: oxyCODONE IR 5 MG TAB ONE (10:20)
--- NOTE | 2018-07-05 19:31 | GOP ---
PATIENT: SRIKANTH CHAN DATE OF SERVICE: 07/04/18 PATIENT DATE OF : 1975 SURGEON: Juan Novoa M.D. CLINICAL SUPPORT MANAGER: Laura Roberson PA-C Mrs. Musa assistance was medically necessary for patient positioning and the retraction of vital structures. ANESTHESIA: General / regional anesthesia by surgeon PRE-OPERATIVE DIAGNOSES: Left lateral epicondylitis (ICD-10 code M77.12 left elbow lateral epicondylitis ) POST-OPERATIVE DIAGNOSES: Left lateral epicondylitis (ICD-10 code M77.12 left elbow lateral epicondylitis ) OPERATIVE PROCEDURES: CPT code 17274 Left elbow lateral epicondyle debridement with repair of the common extensor origin CPT code 86481 Fluoroscopy by surgeon, up to one hour CPT code 19945 Application of a long-arm splint Modifier 47 Regional anesthesia by surgeon EBL: 0.2 cc COMPLICATIONS: None TOURNIQUET TIME: 47 minutes at 250 mmHg IMPLANTS: Biomet 2.9mm Jugger Knot suture anchor with two #2 Maxxon sutures BRIEF CLINICAL NOTE: This is a very pleasant 42 year old female with a significant history for left lateral epicondylitis with a partial thickness undersurface tear of the common extensor origin. As such, I discussed the risks , benefits, alternatives, and complications associated with both non-operative ( specifically, observation, activity modifications, counter-force bracing, PT, NSAIDs, injections) and operative (specifically, left elbow lateral epicondylar debridement with repair of the common extensor origin) forms of treatment. The patient fully understands the risks, benefits, alternatives, and complications associated with both forms of treatment and wishes to proceed with operative intervention as outlined above. The patient has signed the informed consent form for surgery. OPERATIVE NOTE: On the day of surgery, all of the patients questions were answered. The patient was then transferred from the pre-operative area into the operating room and a formal, Time-Out procedure was performed. The patient was identified by name, medical record number, social security number, and date of . In addition, the patients left upper extremity was identified as the correct portion of the patients body for surgery with the patients left lateral elbow being identified as the correct portion of that extremity for surgery. The anesthesia team administered pre-operative antibiotics for prophylaxis. The brachium was then padded with webril and an 18 -inch tourniquet was applied. The extremity was then prepped and draped in the normal sterile fashion. A sterile marking pen was utilized to cristobal out a longitudinal incision extending from the lateral epicondyle distally in-line with common extensor origin. An Esmarch was utilized to exsanguinate the right upper extremity and the tourniquet was inflated to 250 mm Hg. A number 15 blade was used to incise the skin. Meticulous hemostasis was obtained in the subcutaneous plane. The common extensor was split longitudinally in-line with its fibers to expose the undersurface fibers emanating from the lateral epicondyle. The undersurface fibers of the common extensor demonstrated significant degenerative change and partial thickness tearing. The torn portions of the common extensor were then sharply surgically debrided and the lateral epicondyle was decorticated with a 4mm round garrison to create a bleeding bony bed. The drill for the 2.9 mm Biomet Jugger Knot suture anchor was then utilized to drill a pest control pilot hole for the anchor in the lateral epicondyle. The anchor was inserted into the pest control pilot hole and manually checked for pull-out strength. The two pairs of suture from the anchor were then threaded through the remaining common extensor origin and tied to re- approximate the tendon to the lateral epicondyle. The elbow was brought through a full range of motion in the flexion-extension plane and in prono- supination and the repair demonstrated excellent strength. The wound was copiously irrigated with sterile normal saline. The remainder of the common extensor split was re-approximated with 2-0 vicryl sutures. The subcutaneous plane was re-approximated with 3-0 vicryl sutures and the skin was re-approximated with 4-0 monocryl. The skin was cleaned with sterile normal saline and dried. Dermabond was applied to the incision and a mixture of 1% lidocaine and 0.5% Marcaine was then utilized to perform a regional block of the operative site. A Xeroform gauze dressing was then applied followed by a dry sterile dressing and a long-arm splint maintaining the elbow in 90 degrees of flexion and the forearm in neutral rotation. Once the splint was completely in place, the tourniquet was deflated. After complete deflation of the tourniquet, all fingers and the thumb demonstrated brisk capillary refill. The patient was then reversed from anesthesia and transferred from the operating room table onto the post-operative gurney and transferred from the operating room to the post-anesthesia care unit in stable condition. POST-OPERATIVE PLAN: The patient will remain in the current splint and dressing for the next 2 weeks. I will see the patient back in the office in 2 weeks at which point the original splint and dressing will be removed and the patient will be started on a course of gentle elbow and forearm ROM. /[id number]/MODL MTDD
[2018-07-07] MEDS ORDERED: PATCH REMOVAL 1 EA PATCH TD SCH (06:59)
== END 2018-07-04 10:30 | disposition home or self-care (01) ==
LOC: FSGY 05:40
PROVIDERS: ATTEND Orthopaedic Surgery Hand Surgery
PROC: 0LQ40ZZ Repair Left Upper Arm Tendon, Open Approach (ICD-10-PCS; principal; 2018-07-04 07:15)
DX: M77.12 Lateral epicondylitis, left elbow (principal); S56.512A Strain of other extensor muscle, fascia and tendon at forearm level, left arm, initial encounter
CPT/HCPCS: C1713; J1100; J1885; J2250; J2405; J2704; J2765; J2780; J3010; J3370